=== PATIENT | male | born 1965 | race Caucasian/White ===

== ENCOUNTER 2016-07-22 12:02 | Emergency (ER) | payer OTHER ==
[~2016-07-22] VITALS: Ht 172.7 cm; Wt 145.1 kg
--- NOTE | 2016-07-22 12:17 | PHYS DOC ---
Adult General Chief Complaint Chief Complaint: BACK PAIN OR INJURY HPI HPI Patient is a 51 year old male who presents with sided flank pain that started 8:30 this morning. He states he got up to use a bathroom and had pain in the left flank and radiates around to the front of his abdomen. He states he felt nauseated but didn't vomit. He took 800 Motrin try to go back to sleep. He states the pains been constant nothing makes it better or worse. Denies any testicular pain, diarrhea. He does have sleep apnea and takes fish oils and aspirin daily. Denies any history of kidney stones in the past. Review of Systems Review of Systems Constitutional: Denies fever or chills [] Eyes: Denies change in visual acuity, redness, or eye pain [] HENT: Denies nasal congestion or sore throat [] Respiratory: Denies cough or shortness of breath [] Cardiovascular: No additional information not addressed in HPI [] GI: Denies vomiting, bloody stools or diarrhea , positive for abdominal pain, nausea,[] : Denies dysuria or hematuria [] Musculoskeletal: Denies back pain or joint pain [] Integument: Denies rash or skin lesions [] Neurologic: Denies headache, focal weakness or sensory changes [] Endocrine: Denies polyuria or polydipsia [] Current Medications Current Medications Current Medications Medications (Trade) Dose Ordered Sig/Ofelia Start Time Stop Time Status Last Admin Dose Admin Info (Do NOT chart on this entry -- for MONITORING) 1 each PRN DAILY PRN 07/22/16 14:30 07/24/16 14:29 Iohexol (Omnipaque 240 Mg/ml) 50 ml 1X ONCE 07/22/16 14:30 07/22/16 14:31 DC 07/22/16 16:09 50 ML Iohexol (Omnipaque 300 Mg/ml) 75 ml 1X ONCE 07/22/16 14:30 07/22/16 14:31 DC 07/22/16 16:09 75 ML Morphine Sulfate 4 mg PRN Q15MIN PRN 07/22/16 13:00 07/23/16 12:59 07/22/16 12:56 4 MG Ondansetron HCl (Zofran) 4 mg STK-MED ONCE 07/22/16 12:53 07/22/16 12:54 DC Sodium Chloride 1,000 ml @ 1,000 mls/hr 1X ONCE 07/22/16 13:00 07/22/16 13:59 DC 07/22/16 12:55 1,000 MLS/HR Allergies Allergies Allergies Coded Allergies Type Severity Reaction Last Updated Verified No Known Drug Allergies 07/22/16 No Physical Exam Physical Exam Constitutional: Well developed, well nourished, no acute distress, non-toxic appearance. [] HENT: Normocephalic, atraumatic, bilateral external ears normal, oropharynx moist, no oral exudates, nose normal. [] Eyes: PERRLA, EOMI, conjunctiva normal, no discharge. [] Neck: Normal range of motion, no tenderness, supple, no stridor. [] Cardiovascular:Heart rate regular rhythm, no murmur [] Lungs & Thorax: Bilateral breath sounds clear to auscultation [] Abdomen: Bowel sounds normal, soft, no tenderness, no masses, no pulsatile masses. [] Skin: Warm, dry, no erythema, no rash. [] Back: No tenderness, no CVA tenderness. [] Extremities: No tenderness, no cyanosis, no clubbing, ROM intact, no edema. [] Neurologic: Alert and oriented X 3, normal motor function, normal sensory function, no focal deficits noted. [] Psychologic: Affect normal, judgement normal, mood normal. [] Current Patient Data Vital Signs Vital Signs Date Time Temp Pulse Resp B/P (MAP) Pulse Ox O2 Delivery O2 Flow Rate FiO2 07/22/16 12:35 98.0 76 32 170/108 (128) 97 Room Air 98.0 Lab Values Laboratory Tests Test 07/22/16 12:34 White Blood Count 14.0 x10^3/uL (4.0-11.0) H Red Blood Count 4.98 x10^6/uL (4.30-5.70) Hemoglobin 15.4 g/dL (13.0-17.5) Hematocrit 43.7 % (39.0-53.0) Mean Corpuscular Volume 88 fL (79-100) Mean Corpuscular Hemoglobin 31 pg (25-35) Mean Corpuscular Hemoglobin Concent 35 g/dL (31-37) Red Cell Distribution Width 13.3 % (11.5-14.5) Platelet Count 251 x10^3/uL (140-400) Neutrophils (%) (Auto) 79 % (31-73) H Lymphocytes (%) (Auto) 14 % (24-48) L Monocytes (%) (Auto) 5 % (0-9) Eosinophils (%) (Auto) 1 % (0-3) Basophils (%) (Auto) 0 % (0-3) Neutrophils # (Auto) 11.1 x10^3uL (1.8-7.7) H Lymphocytes # (Auto) 2.0 x10^3/uL (1.0-4.8) Monocytes # (Auto) 0.7 x10^3/uL (0.0-1.1) Eosinophils # (Auto) 0.2 x10^3/uL (0.0-0.7) Basophils # (Auto) 0.1 x10^3/uL (0.0-0.2) Prothrombin Time 13.1 SEC (11.7-14.0) Prothrombin Time INR 1.1 (0.8-1.1) Urine Collection Type Unknown Urine Color Yellow Urine Clarity Clear Urine pH 6.0 Urine Specific [place] >=1.030 Urine Protein Negative mg/dL (NEG-TRACE) Urine Glucose (UA) Negative mg/dL (NEG) Urine Ketones (Stick) Negative mg/dL (NEG) Urine Blood Negative (NEG) Urine Nitrite Negative (NEG) Urine Bilirubin Negative (NEG) Urine Urobilinogen Dipstick 0.2 mg/dL (0.2 mg/dL) Urine Leukocyte Esterase Negative (NEG) Urine RBC 0 /HPF (0-2) Urine WBC 0 /HPF (0-4) Urine Squamous Epithelial Cells Few /LPF Urine Amorphous Sediment Present /HPF Urine Bacteria 0 /HPF (0-FEW) Urine Mucus Mod /LPF Sodium Level 140 mmol/L (136-145) Potassium Level 4.1 mmol/L (3.5-5.1) Chloride Level 103 mmol/L (98-107) Carbon Dioxide Level 30 mmol/L (21-32) Anion Gap 7 (6-14) Blood Urea Nitrogen 15 mg/dL (8-26) Creatinine 1.0 mg/dL (0.7-1.3) Estimated GFR (Cockcroft-Gault) 79.1 Glucose Level 117 mg/dL (70-99) H Calcium Level 9.3 mg/dL (8.5-10.1) Magnesium Level 1.9 mg/dL (1.8-2.4) Total Bilirubin 0.6 mg/dL (0.2-1.0) Direct Bilirubin 0.1 mg/dL (0.0-0.2) Aspartate Amino Transferase (AST) 25 U/L (15-37) Alanine Aminotransferase (ALT) 56 U/L (16-63) Alkaline Phosphatase 98 U/L (46-116) Creatine Kinase 108 U/L (39-308) Creatine Kinase MB (Mass) 0.6 ng/mL (0.0-3.6) Creatine Kinase MB Relative Index 0.6 % (0-4) Troponin I Quantitative < 0.017 ng/mL (0.000-0.055) QP-Gzp-J-Type Natriuretic Peptide 49 pg/mL (0-124) Total Protein 8.3 g/dL (6.4-8.2) H Albumin 4.1 g/dL (3.4-5.0) Lipase 131 U/L (73-393) Laboratory Tests 07/22/16 12:34 Laboratory Tests 07/22/16 12:34 Radiology/Procedures Radiology/Procedures [facility] [address] [place] [address] IMAGING REPORT Signed PATIENT: AVELINA ARNOLD ACCOUNT: [id number] : 1965 LOCATION: ER AGE: 51 SEX: M EXAM STATUS: REG ER ORD. PHYSICIAN: JOSE CORBETT MD REASON: abd pain PROCEDURE: CT ABD PELV W/ORAL&IV CONTRAST Indication generalized abdominal pain. Axial images of the abdomen and pelvis were obtained. Both IV and oral contrast were administered. Approximately 75 cc of Omnipaque 300 was administered. Note is made of a previous examination 12/29/2011. The lung bases are clear. The liver and spleen appear unremarkable and gallbladder appears grossly normal. No pancreatic pathology is seen. There are no adrenal masses. There is a 4 to 5 mm left renal calculus. Additionally there is a persistent nephrogram associated with the left kidney relative to the right. There is slight stranding surrounding the left kidney. There is minimal dilatation of the left ureter relative to the right. No obstructing calculus is seen along the course of the left ureter or in the bladder. The constellation of findings is most consistent with a recently passed stone with some likely residual edema. Infection associated with the left kidney and/or ureter is somewhat less likely but clinical correlation advised. An additional finding in the abdomen is not seen. Imaging of the pelvis is unremarkable. 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 Findings suggest a recently passed stone. Infection is not entirely excluded. Clinical correlation advised. A left intrarenal 4 to 5 mm calculus is additionally noted. PQRS Compliance Statement: One or more of the following individualized dose reduction techniques were utilized for this examination: 1. Automated exposure control 2. Adjustment of the mA and/or kV according to patient size 3. Use of iterative reconstruction technique DICTATED and SIGNED BY: SIMI AGUIRRE MD DATE: 07/22/16 [id number] CC: JOSE CORBETT MD; LUKASZ CORRALES DO ~ Impressions: Left-sided flank pain Course & Med Decision Making Course & Med Decision Making Pertinent Labs and Imaging studies reviewed. (See chart for details) Patient's story is consistent with a kidney stone. CT scan also suggest recent passage of stone. His pain has resolved. He is feeling well nourished go home. We'll discharge with urology follow-up and Rew for return of pain. He is agreeable Plan and being discharged in stable condition this time. Dragon Disclaimer Dragon Disclaimer This electronic medical record was generated, in whole or in part, using a voice recognition dictation system. Departure Departure Impression: Primary Impression: Flank pain Disposition: 01 HOME, SELF-CARE Referrals: NON,STAFF (PCP) NOAH MCKEON DO Patient Instructions: Kidney Stones Additional Instructions: Your blood work did not show any acute abnormalities. CT scan shows likely a stone that is just past. Your being discharged home. You can take Rew for pain , he will need to follow-up with urology. If your symptoms get worse, you have uncontrolled nausea vomiting or other concerns please return back to emergency room. Please don't drive or taking Rew as it is a narcotic pain medicine and can impair judgment and make you sleepy. Scripts Hydrocodone/Apap 5-325 (NORCO 5-325 TABLET) 1 Each Tablet 1-2 TAB PO Q6HRS, #20 TAB Prov: JOSE CORBETT MD 07/22/16 JOSE CORBETT MD Jul 22, 2016 12:17
[2016-07-22] MEDS ORDERED: ONDANSETRON PF 4 MG/2 ML VIAL. ONE (12:53)
[2016-07-22 13:00] LABS: BASO # 0.1 x10^3/uL (0.0-0.2); BASO % 0 % (0-3); EOS % 1 % (0-3); HEMATOCRIT 43.7 % (39.0-53.0); HEMOGLOBIN 15.4 g/dL (13.0-17.5); LYMPH % 14 % (24-48); MEAN CORPUSCULAR HEMOGLOBIN 31 pg (25-35); MEAN CORPUSCULAR HGB CONC 35 g/dL (31-37); MEAN CORPUSCULAR VOLUME 88 fL (79-100); MONO % 5 % (0-9); NEUT % 79 % (31-73); PLATELET COUNT 251 x10^3/uL (140-400); RED BLOOD COUNT 4.98 x10^6/uL (4.30-5.70); RED CELL DISTRIBUTION WIDTH 13.3 % (11.5-14.5)
[2016-07-22] MEDS ORDERED: ONDANSETRON PF 4 MG/2 ML VIAL. IV ONE (13:00)
[2016-07-22] MEDS ORDERED: MORPHINE SULFATE 4 MG/ML DISP.SYRIN. IV/SQ PRN (13:00)
[2016-07-22] MEDS ORDERED: IV NORMAL SALINE 1000ML BAG 1,000 ML IV ONE (13:00)
[2016-07-22 13:02] LABS: BILIRUBIN,URINE NEGATIVE (NEG); GLUCOSE,URINE NEGATIVE (NEG); NITRITE,URINE NEGATIVE (NEG); PROTEIN,URINE NEGATIVE (NEG-TRACE); UROBILINOGEN,URINE 0.2 mg/dL (0.2 mg/dL)
[2016-07-22 13:10] LABS: CALCIUM 9.3 mg/dL (8.5-10.1); GFR 79.1; INR 1.1 (0.8-1.1); POTASSIUM 4.1 mmol/L (3.5-5.1); PROTHROMBIN TIME PATIENT 13.1 SEC (11.7-14.0)
[2016-07-22 13:15] LABS: BACTERIA,URINE 0 /HPF (0-FEW); RBC,URINE 0 /HPF (0-2); SQUAMOUS EPITHELIAL CELL,UR FEW /LPF; WBC,URINE 0 /HPF (0-4)
[2016-07-22 13:17] LABS: ALBUMIN 4.1 g/dL (3.4-5.0); DIRECT BILIRUBIN 0.1 mg/dL (0.0-0.2); MAGNESIUM 1.9 mg/dL (1.8-2.4); TOTAL BILIRUBIN 0.6 mg/dL (0.2-1.0); TOTAL PROTEIN 8.3 g/dL (6.4-8.2)
[2016-07-22 13:23] LABS: CKMB MASS 0.6 ng/mL (0.0-3.6)
[2016-07-22] MEDS ORDERED: IOHEXOL 240 MG/ML 50ML VIAL. PO ONE (14:30)
[2016-07-22] MEDS ORDERED: CONTRAST GIVEN MC PRN (14:30)
[2016-07-22] MEDS ORDERED: IOHEXOL 300 MG/ML 75 ML VIAL IV ONE (14:30)
[2016-07-22 15:30] VITALS: BP 138/76
--- NOTE | 2016-07-22 16:36 | RAD ---
Indication generalized abdominal pain. Axial images of the abdomen and pelvis were obtained. Both IV and oral contrast were administered. Approximately 75 cc of Omnipaque 300 was administered. Note is made of a previous examination 12/29/2011. The lung bases are clear. The liver and spleen appear unremarkable and gallbladder appears grossly normal. No pancreatic pathology is seen. There are no adrenal masses. There is a 4 to 5 mm left renal calculus. Additionally there is a persistent nephrogram associated with the left kidney relative to the right. There is slight stranding surrounding the left kidney. There is minimal dilatation of the left ureter relative to the right. No obstructing calculus is seen along the course of the left ureter or in the bladder. The constellation of findings is most consistent with a recently passed stone with some likely residual edema. Infection associated with the left kidney and/or ureter is somewhat less likely but clinical correlation advised. An additional finding in the abdomen is not seen. Imaging of the pelvis is unremarkable. 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 Findings suggest a recently passed stone. Infection is not entirely excluded. Clinical correlation advised. A left intrarenal 4 to 5 mm calculus is additionally noted. PQRS Compliance Statement: One or more of the following individualized dose reduction techniques were utilized for this examination: 1. Automated exposure control 2. Adjustment of the mA and/or kV according to patient size 3. Use of iterative reconstruction technique
[2016-07-22] MEDS ORDERED: HYDR-971 PO (16:43)
--- NOTE | 2016-07-25 16:21 | EKG ---
[facility] [address] [place] [address] Test Date: 2016-07-22 Test Time: 12:57:45 Pat Name: AVELINA ARNOLD Department: Room: Gender: M Analytical Lab Analyst: : 1965 Requested By: JOSE CORBETT Order Number: [id number] Reading MD: Measurements Intervals [place] Rate: 75 P: 21 MA: 164 QRS: 24 QRSD: 104 T: 2 QT: 374 QTc: 420 Interpretive Statements SINUS RHYTHM QRS(T) CONTOUR ABNORMALITY CONSIDER ANTEROSEPTAL MYOCARDIAL DAMAGE RI6.01 Unconfirmed report No previous ECG available for comparison
== END 2016-07-22 16:57 | disposition home or self-care (01) ==
LOC: ER 12:02
DX: R10.9 Unspecified abdominal pain (principal); R11.0 Nausea; G47.30 Sleep apnea, unspecified; Z79.82 Long term (current) use of aspirin; Z79.899 Other long term (current) drug therapy
CPT/HCPCS: 36415; 74177; 80048; 80076; 81001; 82553; 83690; 83735; 83880; 84484; 85027; 85610; 93005; 96361; 96374; 96375; 99285; J2270; J2405; J7030; Q9966; Q9967